=== PATIENT | male | born 1995 | race Caucasian/White ===

== ENCOUNTER 2017-10-22 15:57 | Emergency (ER) | payer BC, SELFPAY ==
[2017-10-22 15:58] VITALS: BP 152/93; PULSE 107; RESP 18; TEMP 37.4; O2SAT 94; BMI 26.2
--- NOTE | 2017-10-22 16:30 | ED.VISSUMM ---
- ER Visit Summary Date of Service: 10/22/17 Chief Complaint: Sinusitis History of Present Illness: The patient is a 22 M who states on Tuesday evening/night he developed discomfort in the right side of his nose and face. States that since that time he has developed nasal congestion, cough, generalized myalgias, subjective fever, a right frontal headache. He states that he called off work last night. He attempted to call if work for tomorrow but he states he needs a work note. Patient's been using NyQuil and DayQuil. Physical Examination: Temperature 99.4 heart rate of 107 respirations are 18 pulse ox 94% on room air Gen: Well-nourished well-developed Head: Normocephalic atraumatic Eyes: Perrl EOMI ENT: TMs clear bilateral turbinate edema moist mucous membranes tender to palpation over the right maxillary sinus the oropharynx is erythematous there is no retropharyngeal or peritonsillar abscess noted Neck: Supple tender anterior lymphadenopathy bilaterally there is small and mobile no JVD nontender CVS: Regular rate rhythm no murmurs normal S1-S2 Respiratory: No distress clear to auscultation bilaterally chest nontender Abdomen: Soft nontender nondistended normal bowel sounds no masses Back: Nontender Extremity: Nontender no edema Skin: Normal color no rash Neuro: alert orientated ?3 CN II-XII intact normal strength sensation reflexes gait cerebellar Psych: Normal affect normal mood Emergency Department Course and Treatment: Patient will be started on Augmentin for presumed bacterial sinusitis. He will use Dian pot or saline sprays. He follow-up with his doctor if not improving. Impression: 1. Sinusitis This note was generated with [employer] dictation software. It may contain incorrect words, spelling, and punctuation that were not noted in review of the chart prior to signing ED Disposition - Plan for ED Patient: Disposition: Home or Assisted Living Chief Complaint: Cold Sx Instructions: ED Sinusitis Abx Tx Prescriptions: Amox/Clavulanate Tablet [Augmentin Tablet] 875 mg PO Q12H #20 tab Referrals: Chiki Sommers DO [Primary Care Provider] - 1 Week if not improving
[2017-10-22 17:00] VITALS: BP 129/87; PULSE 89; RESP 18; O2SAT 99
== END 2017-10-22 17:01 | disposition home or self-care (01) ==
PROVIDERS: Emergency Provider Emergency Medicine; Family Provider Family Medicine; PCP Family Medicine
DX: J32.0 Chronic maxillary sinusitis (principal); Z72.0 Tobacco use
CPT/HCPCS: 99282

== ENCOUNTER 2018-05-09 05:37 | Emergency (ER) | payer BC, SELFPAY ==
[2018-05-09 05:38] VITALS: BP 123/73; PULSE 70; RESP 15; TEMP 36.5; O2SAT 99; BMI 23.7
[2018-05-09] MEDS: Fluorescein 1 MG STRIP 1 STRIP RIGHT EYE (06:33)
[2018-05-09] MEDS: Tetracaine 0.5% Ophthalmic Bottle 1 DRP RIGHT EYE (06:34)
[2018-05-09] MEDS: oxyCODONE 5 MG Tablet PO (06:53)
--- NOTE | 2018-05-09 07:32 | ED.DEP ---
ED Disposition - Plan for ED Patient: Chief Complaint: Eye Problem Instructions: ED Eye Injury Corneal Abrasion Referrals: Chiki Sommers DO [Primary Care Provider] - Mili Thomson MD [STAFF PHYSICIAN] -
--- NOTE | 2018-05-09 07:37 | ED.VISSUMM ---
- ER Visit Summary Date of Service: 05/09/18 Chief Complaint: Right eye redness and pain History of Present Illness: The patient is a 22 M presenting with right eye redness and pain. He states he woke this morning with pain and redness of his right eye. 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 He was wearing a castaon. He states it started to become irritated after work. He wears contacts and took his contacts out last night. He has been rubbing his eye. He denies visual changes. Denies chemical exposure. Denies other complaints. Physical Examination: Vitals are stable. Patient is afebrile. Alert no acute distress. HEENT exam right diffuse conjunctival injection, PERRL, EOMI. No foreign body visualized Neck is supple. Lungs are clear and equal bilaterally. Heart is regular rate and rhythm. Extremities are unremarkable. Skin is warm and dry. No focal neurologic deficit. Remainder of exam is unremarkable. Emergency Department Course and Treatment: Visual acuity without contacts 20/50 OD, 20/50 OS, 20/50 OU. Tetracaine was instilled in the right eye. He had some relief of pain. He continues to have difficulty opening his eye. Eyelid was everted on the right and no foreign body is seen. Slit-lamp was attempted and no significant abrasion was seen however patient is unable to keep his eye open. I feel there is likely a corneal abrasion. He was given bacitracin ophthalmic ointment. Discussed with Dr. Thomson and she will see him in her office this morning. He will go directly to her office. Disposition: Discharge home Impression: Right eye corneal abrasion This note was generated with [employer] dictation software. It may contain incorrect words, spelling, and punctuation that were not noted in review of the chart prior to signing ED Disposition - Plan for ED Patient: Chief Complaint: Eye Problem Instructions: ED Eye Injury Corneal Abrasion Referrals: Chiki Sommers DO [Primary Care Provider] - Mili Thomson MD [STAFF PHYSICIAN] -
--- NOTE | 2018-05-09 07:43 | ED.DCSUM_ITS ---
- ER Visit Summary Date of Service: 05/09/18 Chief Complaint: Right eye redness and pain History of Present Illness: The patient is a 22 M presenting with right eye redness and pain. He states he woke this morning with pain and redness of his right eye. 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 He was wearing a castano. He states it started to become irritated after work. He wears contacts and took his contacts out last night. He has been rubbing his eye. He denies visual changes. Denies chemical exposure. Denies other complaints. Physical Examination: Vitals are stable. Patient is afebrile. Alert no acute distress. HEENT exam right diffuse conjunctival injection, PERRL, EOMI. No foreign body visualized Neck is supple. Lungs are clear and equal bilaterally. Heart is regular rate and rhythm. Extremities are unremarkable. Skin is warm and dry. No focal neurologic deficit. Remainder of exam is unremarkable. Emergency Department Course and Treatment: Visual acuity without contacts 20/50 OD, 20/50 OS, 20/50 OU. Tetracaine was instilled in the right eye. He had some relief of pain. He continues to have difficulty opening his eye. Eyelid was everted on the right and no foreign body is seen. Slit-lamp was attempted and no significant abrasion was seen however patient is unable to keep his eye open. I feel there is likely a corneal abrasion. He was given bacitracin ophthalmic ointment. Discussed with Dr. Thomson and she will see him in her office this morning. He will go directly to her office. Disposition: Discharge home Impression: Right eye corneal abrasion This note was generated with [employer] dictation software. It may contain incorrect words, spelling, and punctuation that were not noted in review of the chart prior to signing ED Disposition - Plan for ED Patient: Chief Complaint: Eye Problem Instructions: ED Eye Injury Corneal Abrasion Referrals: Chiki Sommers DO [Primary Care Provider] - Mili Thomson MD [STAFF PHYSICIAN] -
== END 2018-05-09 07:42 | disposition home or self-care (01) ==
PROVIDERS: Emergency Provider Emergency Medicine; Family Provider Family Medicine; PCP Family Medicine
DX: S05.01XA Injury of conjunctiva and corneal abrasion without foreign body, right eye, initial encounter (principal); X58.XXXA Exposure to other specified factors, initial encounter; Y93.89 Activity, other specified
CPT/HCPCS: 99283

== ENCOUNTER 2021-07-01 08:05 | Emergency (ER) | payer BC, SELFPAY ==
[2021-07-01 08:06] VITALS: BP 149/98; PULSE 73; RESP 18; TEMP 36; O2SAT 98; BMI 31.2
--- NOTE | 2021-07-01 09:02 | EDS_ITS ---
HPI History of Present Illness Chief Complaint: Rash Informant: patient and spouse/S.O. Onset/Context/Timing Onset: Weeks Context: Gradual Onset Timing: Continuous Current Severity: Mild Maximum Severity: Mild Narrative Narrative: 25-year-old male no seen past medical history. He works full run a lot of chemicals and initially when he used latex gloves he developed a rash on both hands. At times it gets better at times it is worse. He denies any other complaints. Prior similar symptoms: Yes Recent Illness/Hospitalization: No PFSH PFSH Medical History no medical history no medical history Home Medications prednisone 40 mg PO DAILY 10 Days #20 tab 07/01/21 [Rx Last Taken Unknown] triamcinolone acetonide 1 applic TOPICAL BID #30 g 07/01/21 [Rx Last Taken Unknown] Allergy/AdvReac Type Severity Reaction Status Date / Time No Known Allergies Allergy Verified 07/01/21 08:05 Social History Smoking Status: Former smoker ROS ROS ED ROS Narrative Rash otherwise denies. Review of Systems ROS Unobtainable: Denies due to encephalopathy Constitutional Constitutional ED: Denies fever(s) Eyes Eyes: Denies change in vision ENT ENT ED: Denies ear pain Cardiovascular Cardiovascular: Denies chest pain Respiratory/Chest Respiratory/Chest: Denies dyspnea Gastrointestinal Gastrointestinal: Denies abdominal pain Genitourinary Genitourinary ED: Denies dysuria Musculoskeletal Musculoskeletal: Denies myalgias Integumentary Reports rash Neurologic Neurologic: Denies headache(s) Psychiatric Psychiatric: Denies depression Endocrine Endocrinology: Denies polyuria Allergic/Immunologic Allergic/Immunologic ED: Denies urticaria EXAM Physical Exam Narrative Exam Narrative: Well-appearing 25-year-old no acute distress vital signs stable afebrile. HEENT exam unremarkable other than skin irritation to his forehead where he wears safety equipment goggles at work. Appears to be a contact dermatitis. Neck nontender no lymphadenopathy. Lungs clear to auscultation. Heart regular rhythm no murmur. Abdomen soft nontender. Moving all 4 extremities. His hands have dry cracked skin areas of redness consistent with a contact dermatitis. There is no secondary infection. No lymphangitic streaking. No axillary lymphadenopathy. Otherwise exam unremarkable. Const Vital Signs: 07/01/21 08:06 Temperature 96.8 F L Temperature Source Temporal Pulse Rate 73 Respiratory Rate 18 Blood Pressure 149/98 H Blood Pressure Mean 115 Pulse Ox 98 Oxygen Delivery Method Room Air Positive well nourished and well developed; Negative for cachectic, contractures or unkempt General Appearance ED: well developed and NAD; Negative for unkempt, cachectic or contractures Nutritional Appearance: Negative for cachectic HEENT Reports moist mucous membranes Negative for trauma or tenderness Eyes PERRL and EOMs intact bilaterally Neck no lymphadenopathy, supple and no JVD General: Negative for tenderness Chest Wall inspection of chest normal and palpation of chest normal Resp normal respiratory effort and clear to auscultation bilaterally Cardio regular rate, regular rhythm, S1 normal heart sound, S2 normal heart sound and no murmurs GI normal to inspection, nondistended, normoactive bowel sounds, non-tender, non- distended and no masses Auscultation: normoactive bowel sounds Palpation: soft; Negative for tender, guarding or rebound tenderness present Back/Spine no CVA tenderness General Back: Negative for CVA tenderness Cervical Spine: Negative for cervical spine tenderness Extremity Negative for normal to inspection Extremity Narrative: Rash to his hands consistent with a contact dermatitis. General Extremety ED: Negative for edema or tenderness General Extremity: Negative for edema Neuro oriented x3 Sensorium / Orientation: alert; Negative for orientation impaired, lethargic or stuporous Motor Exam: strength 5/5 throughout Psych mental status grossly normal Appearance: Negative for unkempt Mood & Affect: Negative for depressed or tearful Skin No no rashes or lesions noted and no wounds Rashes: rashes noted MDM MDM MDM Narrative Medical decision making narrative: Patient with a rash to his hands appears to be an irritant secondary to chemical contact at work. He will be placed on a short dose of steroids and also family said they have used triamcinolone cream and that has improved it also. Discharge Plan Triage Chief Complaint: Rash ED Provider: Gt Hall Dx/Rx/DC Orders Clinical Impression: Contact dermatitis, Eczema Instructions: ED Atopic Dermatitis (Adult), ED Contact Dermatitis Prescriptions: New prednisone 20 mg tablet 40 mg PO DAILY 10 Days Qty: 20 RF: 0 triamcinolone acetonide 0.5 % cream 1 applic topical BID Qty: 30 RF: 0 Primary Care Provider: Care Physician,No Primary Referrals: Monique Miles MD [NON-STAFF] - As soon as possible Matthieu,Chiki, DO [STAFF PHYSICIAN] - Activity Restrictions/Additional Instructions: This rash to be several different things 1 day and contact dermatitis secondary to irritation the chemicals to come in contact with your skin. This could also be secondary to like an eczema type of skin reaction. Use the cream twice daily. Keep your hands dry and clean. Steroid for a week. Follow-up with the assistant winemaker if not improving. Disposition Disposition: Home, Self Care
== END 2021-07-01 09:21 | disposition home or self-care (01) ==
LOC: ED 09:11
PROVIDERS: Emergency Provider Emergency Medicine
DX: L25.9 Unspecified contact dermatitis, unspecified cause (principal); Z87.891 Personal history of nicotine dependence
CPT/HCPCS: 99282